=== PATIENT | male | born 1995 | race Caucasian/White ===

== ENCOUNTER 2018-12-31 07:25 | Emergency (ER) | payer SELFPAY ==
--- NOTE | 2018-12-31 07:51 | EDM.PDOC ---
ED HPI GENERAL MEDICAL PROBLEM - General Chief Complaint: Lower Extremity Injury/Pain Stated Complaint: RIGHT ANKLE INJURY Time Seen by Provider: 12/31/18 07:51 Source of Information: Reports: Patient - History of Present Illness INITIAL COMMENTS - FREE TEXT/NARRATIVE: HISTORY AND PHYSICAL: History of present illness: [Patient has history of rolling his ankle approximately 4 weeks ago he was not seen by provider, he did similar yesterday he states that he heard a pop has had pain with ambulation since unable to bear full weight due to pain concerning the ankle and the dorsum of the foot no fever nausea vomiting chills sweats no chest pain shortness breath headache dizziness palpitation no bowel or urine symptoms] Review of systems: As per history of present illness and below otherwise all systems reviewed and negative. Past medical history: As per history of present illness and as reviewed below otherwise noncontributory. Surgical history: As per history of present illness and as reviewed below otherwise noncontributory. Social history: No reported history of drug or alcohol abuse. Family history: As per history of present illness and as reviewed below otherwise noncontributory. Physical exam: HEENT: Atraumatic, normocephalic, pupils reactive, negative for conjunctival pallor or scleral icterus, mucous membranes moist, throat clear, neck supple, nontender, trachea midline. Lungs: Clear to auscultation, breath sounds equal bilaterally, chest nontender. Heart: S1S2, regular, negative for clicks, rubs, or JVD. Abdomen: Soft, nondistended, nontender. Negative for masses or hepatosplenomegaly. Negative for costovertebral tenderness. Pelvis: Stable nontender. Genitourinary: Deferred. Rectal: Deferred. Extremities: Atraumatic, negative for cords or calf pain. Neurovascular unremarkable. Neuro: Awake, alert, oriented. Cranial nerves II through XII unremarkable. Cerebellum unremarkable. Motor and sensory unremarkable throughout. Exam nonfocal. Diagnostics: [Right foot 3 views Right ankle 3 views ] Therapeutics: [CAM boot Crutches Rest ice ibuprofen ] Impression: [ right foot and ankle injury ] Definitive disposition and diagnosis as appropriate pending reevaluation and review of above. Right Ankle Pain Score (Numeric/FACES): 6 - Related Data Allergies Allergy/AdvReac Type Severity Reaction Status Date / Time No Known Allergies Allergy Verified 12/31/18 07:43 Home Meds: Home Meds . [No Known Home Meds] 12/31/18 [History] Past Medical History - Past Health History Medical/Surgical History: Denies Medical/Surgical History - Infectious Disease History Infectious Disease History: Reports: Chicken Pox Social & Family History - Family History Family Medical History: Noncontributory - Tobacco Use Smoking Status *Q: Light Tobacco Smoker Years of Tobacco use: 4 Packs/Tins Daily: 0.1 - Recreational Drug Use Recreational Drug Use: No Review of Systems - Review of Systems Review Of Systems: See Below ED EXAM, GENERAL - Physical Exam Exam: See Below Course - Vital Signs Last Recorded V/S: Last Vital Signs Temp 98.8 F 12/31/18 07:40 Pulse 102 H 12/31/18 07:40 Resp 18 12/31/18 07:40 BP 162/99 H 12/31/18 07:40 Pulse Ox 96 12/31/18 07:40 - Orders/Labs/Meds Orders: Active Orders 24 hr Category Date Time Status Ankle Min 3V Rt [CR] Stat Exams 12/31/18 07:28 Taken Foot Comp Min 3V Rt [CR] Stat Exams 12/31/18 07:29 Taken Departure - Departure Time of Disposition: 08:12 Disposition: Home, Self-Care 01 Condition: Good Clinical Impression: Right foot injury, Right ankle injury - Discharge Information Referrals: PCP,None [Primary Care Provider] - Forms: ED Department Discharge Additional Instructions: Rest ice ibuprofen Cam boot crutches nonweightbearing Return if symptoms persist or worsen Follow-up with orthopedist, call phone number below to schedule appropriate follow-up [facility] [address], [address] [place] [address] my orthopedic The following information is given to patients seen in the emergency department who are being discharged to home. This information is to outline your options for follow-up care. We provide all patients seen in our emergency department with a follow-up referral. The need for follow-up, as well as the timing and circumstances, are variable depending upon the specifics of your emergency department visit. If you don't have a primary care physician on staff, we will provide you with a referral. We always advise you to contact your personal physician following an emergency department visit to inform them of the circumstance of the visit and for follow-up with them and/or the need for any referrals to a consulting specialist. The emergency department will also refer you to a specialist when appropriate. This referral assures that you have the opportunity for follow-up care with a specialist. All of these measure are taken in an effort to provide you with optimal care, which includes your follow-up. Under all circumstances we always encourage you to contact your private physician who remains a resource for coordinating your care. When calling for follow-up care, please make the office aware that this follow-up is from your recent emergency room visit. If for any reason you are refused follow-up, please contact the [facility] emergency department at and asked to speak to the emergency department charge nurse. - My Orders Last 24 Hours: My Active Orders 12/31/18 07:28 Ankle Min 3V Rt [CR] Stat 12/31/18 07:29 Foot Comp Min 3V Rt [CR] Stat - Assessment/Plan Last 24 Hours: My Active Orders 12/31/18 07:28 Ankle Min 3V Rt [CR] Stat 12/31/18 07:29 Foot Comp Min 3V Rt [CR] Stat
--- NOTE | 2018-12-31 08:24 | CR ---
Indication: Twisted foot and ankle, heard a pop. Technique: Right foot 3 views Comparison: None Findings: No acute fracture or dislocation. Joint spaces are well preserved. Soft tissues are unremarkable. Impression: No acute findings. Dictated by Monica Jacobs MD @ Dec 31 2018 8:21AM Signed by Dr. Monica Jacobs @ Dec 31 2018 8:22AM
--- NOTE | 2018-12-31 08:33 | CR ---
Indication: Pain, twisted ankle. Technique: Right ankle 3 views. Comparison: None Findings: No acute fracture or dislocation. Ankle mortise is intact. Soft tissues are unremarkable. Impression: No acute findings. Dictated by Monica Jacobs MD @ Dec 31 2018 8:29AM Signed by Dr. Monica Jacobs @ Dec 31 2018 8:30AM
== END 2018-12-31 08:50 | disposition home or self-care (01) ==
LOC: MW.ED 07:25
DX: S99.921A Unspecified injury of right foot, initial encounter (principal); S99.911A Unspecified injury of right ankle, initial encounter; F17.210 Nicotine dependence, cigarettes, uncomplicated; X50.1XXA Overexertion from prolonged static or awkward postures, initial encounter
CPT/HCPCS: 73610-26-RT; 73610-RT; 73630-26-RT; 73630-RT; 99282; 99283-25

== ENCOUNTER 2021-09-17 13:10 | Emergency (ER) | payer OTHER ==
[2021-09-17] MEDS ORDERED: Ketorolac 60 MG/2 ML SDV IM ONE (15:49)
[2021-09-17 16:29] LABS: CARBON DIOXIDE,CO2 27.4 mmol/L (21.0-32.0); POTASSIUM,K 3.7 mmol/L (3.5-5.1)
== END 2021-09-17 17:58 | disposition home or self-care (01) ==
LOC: MW.ED 13:10
DX: M10.9 Gout, unspecified (principal)
CPT/HCPCS: 36415; 73630; 80053; 85025; 86140; 96372; 99283; J1885